=== PATIENT | male | born 1970 | race Caucasian/White ===

== ENCOUNTER 2018-02-11 05:12 | Inpatient (IN) | payer MEDICAID ==
[~2018-02-11] VITALS: Ht 172.7 cm; Wt 60.3 kg
[2018-02-11] VITALS (48 sets, daily range): BP systolic 59–207; BP diastolic 24–113
[~2018-02-11 05:12] MED LIST: AMLO10TA80 PO; ASPI-1159 PO; DIALYVITE PO; HYDR-4134 PO; MINO2.5T19 PO; SEVE800T8 PO
[2018-02-11] MEDS ORDERED: PIPERACILLIN/TAZ 3.375G PREMIX 50 ML IV ONE (07:45)
[2018-02-11] MEDS ORDERED: LEVOFLOXACIN 750MG PREMIX 150 ML IV ONE (07:45)
[2018-02-11 07:47] LABS: HEMATOCRIT. 27.7 % (42.0-52.0); HEMOGLOBIN. 9.2 g/dL (14.0-18.0); MEAN CORPUSCULAR HEMOGLOBIN 31.5 pg (28.0-32.0); MEAN CORPUSCULAR VOLUME 94.7 fL (80.0-94.0); MEAN PLATELET VOLUME 7.7 fl (7.4-10.4); PLATELET 242 x1000/uL (130-400); RED BLOOD CELL COUNT 2.92 mill/uL (4.7-6.1)
[2018-02-11 07:54] LABS: CHLORIDE 87 mEq/L (98-107)
[2018-02-11 07:56] LABS: INR 1.3; PROTHROMBIN TIME 13.9 sec (9.4-11.6)
[2018-02-11 08:21] LABS: PLATELET ESTIMATE NORMAL
[2018-02-11] MEDS ORDERED: SODIUM CHLORIDE 0.9% 1,000 ML IV ONE (09:06)
[2018-02-11] MEDS ORDERED: VANCOMYCIN 1 G PREMIX 200 ML IV SCH (09:15)
[2018-02-11] MEDS ORDERED: LORAZEPAM 2MG/ML CPJ IV PRN (11:15)
[2018-02-11] MEDS ORDERED: ACETAMINOPHEN 650MG SUPP PR PRN (11:15)
[2018-02-11] MEDS ORDERED: ACETAMINOPHEN 650MG/20.3ML UDC GT PRN (11:15)
[2018-02-11] MEDS ORDERED: ONDANSETRON HCL 4MG/2ML VIAL IV PRN (11:15)
[2018-02-11] MEDS ORDERED: HYDROCODONE/ACETAMINOPHEN 10/325MG TABLET PO PRN (11:15)
[2018-02-11] MEDS ORDERED: MAGNESIUM/ALUMINUM HYDROXIDE/SIMETHICONE 30ML UDC PO PRN (11:15)
[2018-02-11] MEDS ORDERED: HYDROCODONE/ACETAMINOPHEN 5/325MG TABLET PO PRN (11:15)
[2018-02-11] MEDS ORDERED: GUAIFENESIN 200MG/10ML SUGAR FREE UDC PO PRN (11:15)
[2018-02-11] MEDS ORDERED: AZITHROMYCIN 500 MG in DEXT 5% WATER 250 ML IV SCH (12:30)
[2018-02-11] MEDS ORDERED: IPRATROPIUM/ALBUTEROL 0.5-3(2.5)MG/3ML NEB HHN PRN (12:30)
[2018-02-11] MEDS ORDERED: CEFTRIAXONE 2 G PREMIX 50 ML IV SCH (12:30)
[2018-02-11 12:42] LABS: BG BILEVEL POS AIRWAY PRESSURE 15/5; BG DEOXYHEMOGLOBIN 6.6 % (0.0-5.0); BG FRACTION INSPIRED OXYGEN 50; BG HCO3 ACT 31.4 mmol/L (22.0-26.0); BG METHEMOGLOBIN 0.2 % (0.0-1.5); BG OXYGEN SATURATION 93.4 % (92.0-98.5); BG OXYHEMOGLOBIN 93.2 % (94.0-97.0); BG PCO2 44.6 mmHg (35.0-45.0); BG PH 7.466 (7.350-7.450); BG PO2 71.9 mmHg (75.0-100.0); BG SAMPLE SITE RIGHT BRACHIAL; BG TOTAL HEMOGLOBIN 9.9 g/dL (12.0-18.0); BG VENT MODE MASK - BIPAP
[2018-02-11] MEDS ORDERED: ALBUTEROL (0.083%) 2.5MG/3ML NEB HHN STA (12:56)
[2018-02-11] MEDS ORDERED: ETOMIDATE 2MG/ML 10ML VIAL IV ONE ×2 (13:45→14:38)
[2018-02-11] MEDS ORDERED: SUCCINYLCHOLINE CHLORIDE 200MG/10ML VIAL IV ONE ×3 (13:45→14:38)
[2018-02-11] MEDS ORDERED: PROPOFOL 10MG/ML 100ML 100 ML IV SCH (13:45)
[2018-02-11] MEDS ORDERED: NITROGLYCERIN 50MG PREMIX 250 ML IV ONE (14:15)
[2018-02-11] MEDS ORDERED: ENALAPRIL 2.5MG/2ML VIAL 2ML IV ONE (14:15)
[2018-02-11] MEDS ORDERED: FUROSEMIDE 20MG/2ML VIAL IVP ONE (14:15)
[2018-02-11] MEDS ORDERED: NORMAL SALINE 0.9% 10 ML SYR ONE (14:38)
[2018-02-11] MEDS ORDERED: MIDAZOLAM HCL 50 MG in DEXTROSE 5% WATER 40 ML IV ONE (14:45)
[2018-02-11] MEDS ORDERED: FENTANYL CITRATE/PF 500 MCG in SODIUM CHLORIDE 0.9% 40 ML IV PRN ×3 (14:45→16:00)
[2018-02-11] MEDS ORDERED: MIDAZOLAM HCL 100 MG in DEXT 5% WATER 80 ML IV PRN (16:00)
[2018-02-11] MEDS ORDERED: PANTOPRAZOLE SODIUM 40 MG/VIAL IV NR (16:00)
[2018-02-11] MEDS ORDERED: NOREPINEPHRINE 16 MG in DEXT 5% WATER 234 ML IV PRN (16:00)
[2018-02-11 16:24] LABS: CREATINE KINASE MB FRACTION 2.2 ng/mL (0.5-3.6)
[2018-02-11 16:51] LABS: BG BASE EXCESS 3.8 mmol/L (-2.0-2.0); BG CARBOXYHEMOGLOBIN 0.5 % (0.5-1.5); BG DEOXYHEMOGLOBIN 21.9 % (0.0-5.0); BG FRACTION INSPIRED OXYGEN 100; BG HCO3 ACT 29.9 mmol/L (22.0-26.0); BG METHEMOGLOBIN 0.5 % (0.0-1.5); BG OXYGEN SATURATION 77.9 % (92.0-98.5); BG OXYHEMOGLOBIN 77.1 % (94.0-97.0); BG PCO2 52.3 mmHg (35.0-45.0); BG PH 7.375 (7.350-7.450); BG PO2 46.3 mmHg (75.0-100.0); BG SAMPLE SITE RIGHT BRACHIAL; BG TIDAL VOLUME(mL) 500 mL; BG VENT MODE VENT - A/C; BG VENT RATE 18 set
[2018-02-11] MEDS: NOREPINEPHRINE 16 MG in DEXT 5% WATER 234 ML IV PRN (17:40)
[2018-02-11 18:17] LABS: BG BASE EXCESS 5.5 mmol/L (-2.0-2.0); BG CARBOXYHEMOGLOBIN 0.2 % (0.5-1.5); BG DEOXYHEMOGLOBIN 12.6 % (0.0-5.0); BG METHEMOGLOBIN 0.2 % (0.0-1.5); BG OXYGEN SATURATION 87.3 % (92.0-98.5); BG PCO2 50.1 mmHg (35.0-45.0); BG PO2 57.3 mmHg (75.0-100.0); BG SAMPLE SITE RIGHT BRACHIAL; BG TIDAL VOLUME(mL) 500 mL; BG TOTAL HEMOGLOBIN 10.7 g/dL (12.0-18.0); BG VENT MODE VENT - A/C; BG VENT RATE 18 set
[2018-02-11] MEDS: METRONIDAZOLE 500 MG PREMIX 100 ML IV SCH (18:22)
[2018-02-11] MEDS ORDERED: VANCOMYCIN 500 MG PREMIX 100 ML IV NR (18:30)
[2018-02-11] MEDS: IPRATROPIUM/ALBUTEROL 0.5-3(2.5)MG/3ML NEB HHN SCH (20:14)
[2018-02-11] MEDS: PIPERACILLIN/TAZ 2.25G PREMIX 50 ML IV SCH (20:36)
[2018-02-11] MEDS: AMLODIPINE 5MG TABLET PO SCH (21:00)
[2018-02-11] MEDS ORDERED: EPOETIN ALFA 10000UNITS/ML VIAL SUBCUT SCH (21:00)
[2018-02-11] MEDS: MIDAZOLAM HCL 100 MG in DEXT 5% WATER 80 ML IV PRN (22:58)
[2018-02-11] MEDS: FENTANYL CITRATE/PF 500 MCG in SODIUM CHLORIDE 0.9% 40 ML IV PRN (22:58)
[2018-02-12] VITALS (104 sets, daily range): BP systolic 66–150; BP diastolic 28–67
[2018-02-12 00:10] LABS: CREATINE KINASE MB FRACTION 3.8 ng/mL (0.5-3.6)
[2018-02-12] MEDS: IPRATROPIUM/ALBUTEROL 0.5-3(2.5)MG/3ML NEB HHN SCH ×6 (03:15→23:46)
[2018-02-12] MEDS: PIPERACILLIN/TAZ 2.25G PREMIX 50 ML IV SCH ×2 (04:49→11:44)
[2018-02-12] MEDS: METRONIDAZOLE 500 MG PREMIX 100 ML IV SCH (05:10)
[2018-02-12 05:30] LABS: HEMATOCRIT. 26.9 % (42.0-52.0); MEAN CORPUSCULAR HEMOGLOBIN 31.8 pg (28.0-32.0); MEAN CORPUSCULAR VOLUME 94.7 fL (80.0-94.0); MEAN PLATELET VOLUME 8.2 fl (7.4-10.4); PLATELET 179 x1000/uL (130-400); RED BLOOD CELL COUNT 2.84 mill/uL (4.7-6.1); RED CELL DISTRIBUTION WIDTH 15.8 % (11.6-14.6)
[2018-02-12 05:44] LABS: CHLORIDE 98 mEq/L (98-107)
[2018-02-12 05:49] LABS: PHOSPHORUS 3.6 mg/dL (2.5-4.9)
[2018-02-12 05:50] LABS: LDL CHOLESTEROL 29 mg/dL (5-100)
[2018-02-12 05:52] LABS: HDL CHOLESTEROL 12 mg/dL (40-59)
[2018-02-12 05:54] LABS: T4 FREE 1.34 ng/dL (0.76-1.46)
[2018-02-12 06:52] LABS: PLATELET ESTIMATE NORMAL
[2018-02-12 07:57] LABS: BG BASE EXCESS 2.4 mmol/L (-2.0-2.0); BG CARBOXYHEMOGLOBIN 0.1 % (0.5-1.5); BG DEOXYHEMOGLOBIN 1.1 % (0.0-5.0); BG FRACTION INSPIRED OXYGEN 100; BG HCO3 ACT 27.3 mmol/L (22.0-26.0); BG METHEMOGLOBIN 0.4 % (0.0-1.5); BG OXYGEN SATURATION 98.9 % (92.0-98.5); BG OXYHEMOGLOBIN 98.4 % (94.0-97.0); BG PCO2 43.5 mmHg (35.0-45.0); BG PH 7.415 (7.350-7.450); BG PO2 181.5 mmHg (75.0-100.0); BG SAMPLE SITE RIGHT RADIAL; BG TIDAL VOLUME(mL) 500 mL; BG TOTAL HEMOGLOBIN 9.6 g/dL (12.0-18.0); BG VENT MODE VENT - A/C; BG VENT RATE 18 set
[2018-02-12] MEDS ORDERED: AMIKACIN SULFATE 750 MG in SODIUM CHLORIDE 0.9% 100 ML IV SCH (09:00)
[2018-02-12] MEDS: PANTOPRAZOLE SODIUM 40 MG/VIAL IV SCH (09:56)
[2018-02-12] MEDS: AMLODIPINE 5MG TABLET PO SCH ×2 (11:00→20:34)
[2018-02-12] MEDS: FENTANYL CITRATE/PF 500 MCG in SODIUM CHLORIDE 0.9% 40 ML IV PRN (11:46)
[2018-02-12] MEDS ORDERED: LIDOCAINE HCL 1% 20ML VIAL (Pyxis) INJ ONE (12:41)
[2018-02-12 22:38] LABS: CLARITY URINE CLOUDY (CLEAR); COLOR URINE YELLOW (YELLOW); KETONES URINE NEGATIVE (NEGATIVE); LEUKOCYTE ESTERASE URINE TRACE (NEGATIVE); NITRITE URINE NEGATIVE (NEGATIVE); OCCULT BLOOD URINE 2+ (NEGATIVE); PH URINE >=9.0 (4.5-8.0); PROTEIN URINE 4+ (NEGATIVE); SPECIFIC GRAVITY URINE 1.012 (1.005-1.030); UROBILINOGEN URINE 0.2 E.U./dL (0.2-1.0)
[2018-02-12 22:50] LABS: *AMPHETAMINES SCREEN URINE NEGATIVE (NEGATIVE); *BARBITURATES SCREEN URINE NEGATIVE (NEGATIVE); *BENZODIAZEPINES SCREEN URINE PRESUMTIVE POSITIVE (NEGATIVE); *COCAINE SCREEN URINE NEGATIVE (NEGATIVE); CANNABINOID URINE SCREEN NEGATIVE (NEGATIVE); METHADONE URINE SCREEN NEGATIVE (NEGATIVE); OPIATES URINE SCREEN NEGATIVE (NEGATIVE); PHENCYCLIDINE URINE SCREEN NEGATIVE (NEGATIVE)
[2018-02-13] VITALS (60 sets, daily range): BP systolic 93–154; BP diastolic 51–75
[2018-02-13] MEDS: NOREPINEPHRINE 16 MG in DEXT 5% WATER 234 ML IV PRN (01:13)
[2018-02-13] MEDS: PIPERACILLIN/TAZ 2.25G PREMIX 50 ML IV SCH ×3 (01:13→18:08)
[2018-02-13] MEDS: IPRATROPIUM/ALBUTEROL 0.5-3(2.5)MG/3ML NEB HHN SCH ×5 (04:15→21:03)
[2018-02-13] MEDS: ACETAMINOPHEN 325MG TABLET PO PRN (04:34)
[2018-02-13 05:32] LABS: HEMATOCRIT. 27.2 % (42.0-52.0); HEMOGLOBIN. 9.2 g/dL (14.0-18.0); MEAN CORPUSCULAR HEMOGLOBIN 31.9 pg (28.0-32.0); MEAN PLATELET VOLUME 8.4 fl (7.4-10.4); PLATELET 213 x1000/uL (130-400); RED BLOOD CELL COUNT 2.89 mill/uL (4.7-6.1); RED CELL DISTRIBUTION WIDTH 15.9 % (11.6-14.6)
[2018-02-13 05:51] LABS: PHOSPHORUS 3.8 mg/dL (2.5-4.9)
[2018-02-13 08:00] LABS: BG CARBOXYHEMOGLOBIN 0.3 % (0.5-1.5); BG DEOXYHEMOGLOBIN 2.4 % (0.0-5.0); BG FRACTION INSPIRED OXYGEN 60; BG HCO3 ACT 25.3 mmol/L (22.0-26.0); BG METHEMOGLOBIN 0.3 % (0.0-1.5); BG OXYGEN SATURATION 97.6 % (92.0-98.5); BG PCO2 38.6 mmHg (35.0-45.0); BG PH 7.434 (7.350-7.450); BG PO2 104.4 mmHg (75.0-100.0); BG SAMPLE SITE RIGHT RADIAL; BG TIDAL VOLUME(mL) 550 mL; BG TOTAL HEMOGLOBIN 9.7 g/dL (12.0-18.0); BG VENT MODE VENT - A/C; BG VENT RATE 18 set
[2018-02-13] MEDS: AMLODIPINE 5MG TABLET PO SCH ×2 (09:00→21:00)
[2018-02-13] MEDS ORDERED: LEVOFLOXACIN 750MG PREMIX 150 ML IV SCH (09:00)
[2018-02-13] MEDS: PANTOPRAZOLE SODIUM 40 MG/VIAL IV SCH (10:06)
[2018-02-13 10:18] LABS: PLATELET ESTIMATE NORMAL
[2018-02-13] MEDS ORDERED: VANCOMYCIN 1 G PREMIX 200 ML IV SCH (12:00)
[2018-02-13] MEDS ORDERED: HYDROMORPHONE HCL/PF 2MG/ML CPJ IV PRN (12:15)
[2018-02-13] MEDS: FENTANYL CITRATE/PF 500 MCG in SODIUM CHLORIDE 0.9% 40 ML IV PRN (14:20)
[2018-02-13] MEDS: EPOETIN ALFA 4000UNITS/ML VIAL SUBCUT SCH (20:23)
[2018-02-13 21:00] LABS: BG BASE EXCESS -0.8 mmol/L (-2.0-2.0); BG CARBOXYHEMOGLOBIN 0.7 % (0.5-1.5); BG DEOXYHEMOGLOBIN 3.3 % (0.0-5.0); BG FRACTION INSPIRED OXYGEN 50; BG HCO3 ACT 22.3 mmol/L (22.0-26.0); BG METHEMOGLOBIN 0.2 % (0.0-1.5); BG OXYGEN SATURATION 96.7 % (92.0-98.5); BG OXYHEMOGLOBIN 95.8 % (94.0-97.0); BG PCO2 30.8 mmHg (35.0-45.0); BG PH 7.478 (7.350-7.450); BG PO2 89.9 mmHg (75.0-100.0); BG SAMPLE SITE RIGHT RADIAL; BG TIDAL VOLUME(mL) 550 mL; BG TOTAL HEMOGLOBIN 8.7 g/dL (12.0-18.0); BG VENT MODE VENT - A/C; BG VENT RATE 14 set
[2018-02-14] VITALS (84 sets, daily range): BP systolic 99–204; BP diastolic 43–88
[2018-02-14] MEDS: IPRATROPIUM/ALBUTEROL 0.5-3(2.5)MG/3ML NEB HHN SCH ×6 (00:53→20:43)
[2018-02-14] MEDS: AMLODIPINE 5MG TABLET PO SCH ×3 (01:08→21:44)
[2018-02-14] MEDS: FENTANYL CITRATE/PF 500 MCG in SODIUM CHLORIDE 0.9% 40 ML IV PRN ×2 (03:44→09:22)
[2018-02-14] MEDS: MIDAZOLAM HCL 100 MG in DEXT 5% WATER 80 ML IV PRN (03:45)
[2018-02-14 05:35] LABS: HEMATOCRIT. 24.3 % (42.0-52.0); HEMOGLOBIN. 8.2 g/dL (14.0-18.0); MEAN CORPUSCULAR HEMOGLOBIN 31.7 pg (28.0-32.0); MEAN CORPUSCULAR VOLUME 93.7 fL (80.0-94.0); PLATELET 185 x1000/uL (130-400); RED BLOOD CELL COUNT 2.59 mill/uL (4.7-6.1); RED CELL DISTRIBUTION WIDTH 15.8 % (11.6-14.6)
[2018-02-14] MEDS: PANTOPRAZOLE SODIUM 40 MG/VIAL IV SCH (08:01)
[2018-02-14 08:21] LABS: BG BASE EXCESS -0.7 mmol/L (-2.0-2.0); BG CARBOXYHEMOGLOBIN 0.3 % (0.5-1.5); BG DEOXYHEMOGLOBIN 2.5 % (0.0-5.0); BG FRACTION INSPIRED OXYGEN 50; BG HCO3 ACT 23.1 mmol/L (22.0-26.0); BG METHEMOGLOBIN 0.3 % (0.0-1.5); BG OXYGEN SATURATION 97.5 % (92.0-98.5); BG OXYHEMOGLOBIN 96.9 % (94.0-97.0); BG PCO2 34.6 mmHg (35.0-45.0); BG PH 7.443 (7.350-7.450); BG PO2 103.3 mmHg (75.0-100.0); BG SAMPLE SITE RIGHT RADIAL; BG TIDAL VOLUME(mL) 550 mL; BG TOTAL HEMOGLOBIN 8.8 g/dL (12.0-18.0); BG VENT MODE VENT - A/C; BG VENT RATE 14 set
[2018-02-14 08:39] LABS: PLATELET ESTIMATE NORMAL
[2018-02-14] MEDS: DOCUSATE SODIUM 100MG CAPSULE PO PRN ×2 (08:49→18:13)
[2018-02-14] MEDS: PIPERACILLIN/TAZ 2.25G PREMIX 50 ML IV SCH ×2 (09:21→18:13)
[2018-02-14 17:34] LABS: BG BASE EXCESS 0.8 mmol/L (-2.0-2.0); BG CARBOXYHEMOGLOBIN 0.5 % (0.5-1.5); BG DEOXYHEMOGLOBIN 4.3 % (0.0-5.0); BG METHEMOGLOBIN 0.2 % (0.0-1.5); BG OXYGEN SATURATION 95.7 % (92.0-98.5); BG PCO2 43.7 mmHg (35.0-45.0); BG PH 7.392 (7.350-7.450); BG PO2 84.9 mmHg (75.0-100.0); BG SAMPLE SITE RIGHT BRACHIAL; BG TIDAL VOLUME(mL) 550 mL; BG VENT MODE VENT - SIMV; BG VENT RATE 10 set
[2018-02-15] VITALS (51 sets, daily range): BP systolic 97–146; BP diastolic 52–104
[2018-02-15] MEDS: IPRATROPIUM/ALBUTEROL 0.5-3(2.5)MG/3ML NEB HHN SCH ×6 (00:19→21:08)
[2018-02-15] MEDS: PIPERACILLIN/TAZ 2.25G PREMIX 50 ML IV SCH ×2 (01:24→10:04)
[2018-02-15] MEDS: MIDAZOLAM HCL 100 MG in DEXT 5% WATER 80 ML IV PRN ×2 (01:54→19:57)
[2018-02-15] MEDS: FENTANYL CITRATE/PF 500 MCG in SODIUM CHLORIDE 0.9% 40 ML IV PRN ×3 (02:26→19:56)
[2018-02-15 05:46] LABS: HEMATOCRIT. 24.9 % (42.0-52.0); HEMOGLOBIN. 8.4 g/dL (14.0-18.0); MEAN CORPUSCULAR HEMOGLOBIN 31.4 pg (28.0-32.0); MEAN CORPUSCULAR VOLUME 93.4 fL (80.0-94.0); MEAN PLATELET VOLUME 7.7 fl (7.4-10.4); PLATELET 168 x1000/uL (130-400); RED BLOOD CELL COUNT 2.66 mill/uL (4.7-6.1); RED CELL DISTRIBUTION WIDTH 15.9 % (11.6-14.6)
[2018-02-15] MEDS: PANTOPRAZOLE SODIUM 40 MG/VIAL IV SCH (08:09)
[2018-02-15] MEDS: LEVOFLOXACIN 500MG PREMIX 100 ML IV SCH (08:09)
[2018-02-15] MEDS: AMLODIPINE 5MG TABLET PO SCH ×2 (08:09→20:48)
[2018-02-15] MEDS: DOCUSATE SODIUM SUGAR FREE 100MG/10ML UDC NG SCH ×2 (08:18→17:01)
[2018-02-15 09:49] LABS: BG CARBOXYHEMOGLOBIN 0.1 % (0.5-1.5); BG DEOXYHEMOGLOBIN 3.4 % (0.0-5.0); BG FRACTION INSPIRED OXYGEN 50; BG HCO3 ACT 27.5 mmol/L (22.0-26.0); BG METHEMOGLOBIN 0.6 % (0.0-1.5); BG OXYGEN SATURATION 96.6 % (92.0-98.5); BG OXYHEMOGLOBIN 95.9 % (94.0-97.0); BG PCO2 47.3 mmHg (35.0-45.0); BG PH 7.382 (7.350-7.450); BG PO2 99.9 mmHg (75.0-100.0); BG PRESSURE SUPPORT 12; BG SAMPLE SITE RIGHT RADIAL; BG TIDAL VOLUME(mL) 550 mL; BG TOTAL HEMOGLOBIN 9.4 g/dL (12.0-18.0); BG VENT MODE VENT - SIMV; BG VENT RATE 10 set
[2018-02-15] MEDS: ACETAMINOPHEN 325MG TABLET PO PRN (11:08)
[2018-02-15 11:32] LABS: PLATELET ESTIMATE NORMAL
[2018-02-15] MEDS: ACETYLCYSTEINE 100MG/ML 10% VIAL 4ML INH SCH (12:40)
[2018-02-15] MEDS ORDERED: DIATR MEGLU/DIATRIZOATE SOLN 30ML PO NR (13:00)
[2018-02-15] MEDS ORDERED: LACTULOSE 20G/30ML UDC PO NR (16:45)
[2018-02-15 19:33] LABS: AMMONIA 32 uMol/L (<32)
[2018-02-15] MEDS ORDERED: FENTANYL CITRATE IV PRN (19:45)
[2018-02-15] MEDS ORDERED: SODIUM CHLORIDE 0.9% IV PRN (19:45)
[2018-02-15] MEDS ORDERED: NA PHOS,M-B/NA PHOS,DI-BA ENEMA 118ML PR PRN (21:00)
[2018-02-16] VITALS (44 sets, daily range): BP systolic 98–151; BP diastolic 38–100
[2018-02-16] MEDS: ACETYLCYSTEINE 100MG/ML 10% VIAL 4ML INH SCH ×3 (00:21→16:37)
[2018-02-16] MEDS: IPRATROPIUM/ALBUTEROL 0.5-3(2.5)MG/3ML NEB HHN SCH ×6 (00:21→20:14)
[2018-02-16] MEDS: FENTANYL 500 MCG in SODIUM CHLORIDE 0.9% 50 ML IV PRN ×4 (00:47→20:16)
[2018-02-16 08:02] LABS: BG BASE EXCESS 0.5 mmol/L (-2.0-2.0); BG CARBOXYHEMOGLOBIN 0.8 % (0.5-1.5); BG DEOXYHEMOGLOBIN 10.4 % (0.0-5.0); BG HCO3 ACT 27.1 mmol/L (22.0-26.0); BG METHEMOGLOBIN 0.1 % (0.0-1.5); BG OXYGEN SATURATION 89.5 % (92.0-98.5); BG OXYHEMOGLOBIN 88.7 % (94.0-97.0); BG PCO2 54.2 mmHg (35.0-45.0); BG PH 7.317 (7.350-7.450); BG PO2 63.4 mmHg (75.0-100.0); BG SAMPLE SITE RIGHT BRACHIAL; BG TIDAL VOLUME(mL) 550 mL; BG TOTAL HEMOGLOBIN 8.9 g/dL (12.0-18.0); BG VENT MODE VENT - SIMV; BG VENT RATE 10 set
[2018-02-16 08:57] LABS: HEMATOCRIT. 23.9 % (42.0-52.0); MEAN CORPUSCULAR HEMOGLOBIN 31.5 pg (28.0-32.0); MEAN CORPUSCULAR VOLUME 93.8 fL (80.0-94.0); MEAN PLATELET VOLUME 7.7 fl (7.4-10.4); PLATELET 157 x1000/uL (130-400); RED BLOOD CELL COUNT 2.54 mill/uL (4.7-6.1); RED CELL DISTRIBUTION WIDTH 15.7 % (11.6-14.6)
[2018-02-16] MEDS: AMLODIPINE 5MG TABLET PO SCH ×2 (09:00→21:02)
[2018-02-16] MEDS: DOCUSATE SODIUM SUGAR FREE 100MG/10ML UDC NG SCH ×2 (09:00→15:08)
[2018-02-16 09:07] LABS: PHOSPHORUS 4.8 mg/dL (2.5-4.9)
[2018-02-16] MEDS: MIDAZOLAM HCL 100 MG in DEXT 5% WATER 80 ML IV PRN (09:30)
[2018-02-16 09:44] LABS: FOLIC ACID (FOLATE) SERUM >20 ng/mL ng/mL (>5.38)
[2018-02-16 10:13] LABS: VITAMIN B12 SERUM > 2000.0 pg/mL (211-911)
[2018-02-16] MEDS: PANTOPRAZOLE SODIUM 40 MG/VIAL IV SCH ×2 (10:39→21:02)
[2018-02-16 10:41] LABS: INR 1.2; PARTIAL THROMBOPLASTIN TIME 29.5 sec (23.4-31.0); PROTHROMBIN TIME 12.9 sec (9.4-11.6)
[2018-02-16 11:08] LABS: FERRITIN 1798 ng/mL (22-322)
[2018-02-16 13:03] LABS: PLATELET ESTIMATE NORMAL
[2018-02-16 16:59] LABS: HEMATOCRIT 25.1 % (42.0-52.0); HEMOGLOBIN 8.4 g/dL (14.0-18.0)
[2018-02-16] MEDS: EPOETIN ALFA 4000UNITS/ML VIAL SUBCUT SCH (21:03)
[2018-02-17] VITALS (47 sets, daily range): BP systolic 113–177; BP diastolic 36–83
[2018-02-17] MEDS: MIDAZOLAM HCL 100 MG in DEXT 5% WATER 80 ML IV PRN ×3 (00:01→19:17)
[2018-02-17] MEDS: ACETYLCYSTEINE 100MG/ML 10% VIAL 4ML INH SCH ×5 (00:30→23:55)
[2018-02-17] MEDS: IPRATROPIUM/ALBUTEROL 0.5-3(2.5)MG/3ML NEB HHN SCH ×7 (00:31→23:54)
[2018-02-17] MEDS: FENTANYL 500 MCG in SODIUM CHLORIDE 0.9% 50 ML IV PRN ×6 (05:06→23:56)
[2018-02-17 06:17] LABS: HEMATOCRIT. 24.7 % (42.0-52.0); HEMOGLOBIN. 8.4 g/dL (14.0-18.0); MEAN CORPUSCULAR HEMOGLOBIN 31.3 pg (28.0-32.0); MEAN CORPUSCULAR VOLUME 92.3 fL (80.0-94.0); MEAN PLATELET VOLUME 8.1 fl (7.4-10.4); PLATELET 223 x1000/uL (130-400); RED BLOOD CELL COUNT 2.67 mill/uL (4.7-6.1); RED CELL DISTRIBUTION WIDTH 15.5 % (11.6-14.6)
[2018-02-17 07:56] LABS: BG BASE EXCESS -0.3 mmol/L (-2.0-2.0); BG CARBOXYHEMOGLOBIN 0.3 % (0.5-1.5); BG DEOXYHEMOGLOBIN 1.4 % (0.0-5.0); BG FRACTION INSPIRED OXYGEN 50; BG HCO3 ACT 25.8 mmol/L (22.0-26.0); BG METHEMOGLOBIN 0.2 % (0.0-1.5); BG OXYGEN SATURATION 98.6 % (92.0-98.5); BG OXYHEMOGLOBIN 98.1 % (94.0-97.0); BG PCO2 49.8 mmHg (35.0-45.0); BG PH 7.333 (7.350-7.450); BG PO2 164.3 mmHg (75.0-100.0); BG SAMPLE SITE RIGHT BRACHIAL; BG TIDAL VOLUME(mL) 550 mL; BG VENT MODE VENT - A/C; BG VENT RATE 12 set
[2018-02-17 08:47] LABS: PLATELET ESTIMATE NORMAL
[2018-02-17] MEDS: AMLODIPINE 5MG TABLET PO SCH ×2 (09:28→20:32)
[2018-02-17] MEDS: PANTOPRAZOLE SODIUM 40 MG/VIAL IV SCH ×2 (09:28→20:32)
[2018-02-17] MEDS: DOCUSATE SODIUM SUGAR FREE 100MG/10ML UDC NG SCH ×2 (09:28→18:29)
[2018-02-17] MEDS: LEVOFLOXACIN 500MG PREMIX 100 ML IV SCH (09:30)
[2018-02-17] MEDS: NEOMY SULF/BACITRAC ZN/POLY OINT 28GM TOP SCH (20:35)
[2018-02-18] VITALS (47 sets, daily range): BP systolic 114–171; BP diastolic 37–65
[2018-02-18] MEDS: MIDAZOLAM HCL 100 MG in DEXT 5% WATER 80 ML IV PRN ×2 (03:45→14:16)
[2018-02-18] MEDS: IPRATROPIUM/ALBUTEROL 0.5-3(2.5)MG/3ML NEB HHN SCH ×5 (04:23→20:06)
[2018-02-18] MEDS: ACETYLCYSTEINE 100MG/ML 10% VIAL 4ML INH SCH ×4 (04:33→16:00)
[2018-02-18] MEDS: FENTANYL 500 MCG in SODIUM CHLORIDE 0.9% 50 ML IV PRN ×4 (05:20→21:53)
[2018-02-18 07:21] LABS: BASOPHILS % 0.8 % (0.0-2.0); EOSINOPHILS % 6.1 % (0.0-5.0); HEMATOCRIT. 24.3 % (42.0-52.0); HEMOGLOBIN. 8.3 g/dL (14.0-18.0); LYMPHOCYTES % 9.6 % (20.0-50.0); MEAN CORPUSCULAR HEMOGLOBIN 31.6 pg (28.0-32.0); MEAN PLATELET VOLUME 7.9 fl (7.4-10.4); MONOCYTES % 7.2 % (2.0-8.0); NEUTROPHILS % 76.3 % (40.0-76.0); PLATELET 257 x1000/uL (130-400); RED BLOOD CELL COUNT 2.62 mill/uL (4.7-6.1); RED CELL DISTRIBUTION WIDTH 15.7 % (11.6-14.6)
[2018-02-18 07:47] LABS: PHOSPHORUS 5.7 mg/dL (2.5-4.9)
[2018-02-18 08:06] LABS: BG BASE EXCESS 1.4 mmol/L (-2.0-2.0); BG CARBOXYHEMOGLOBIN 0.4 % (0.5-1.5); BG DEOXYHEMOGLOBIN 1.6 % (0.0-5.0); BG FRACTION INSPIRED OXYGEN 40; BG HCO3 ACT 26.5 mmol/L (22.0-26.0); BG METHEMOGLOBIN 0.2 % (0.0-1.5); BG OXYGEN SATURATION 98.4 % (92.0-98.5); BG OXYHEMOGLOBIN 97.8 % (94.0-97.0); BG PCO2 44.3 mmHg (35.0-45.0); BG PH 7.394 (7.350-7.450); BG PO2 133.5 mmHg (75.0-100.0); BG SAMPLE SITE RIGHT BRACHIAL; BG TIDAL VOLUME(mL) 550 mL; BG TOTAL HEMOGLOBIN 8.6 g/dL (12.0-18.0); BG VENT MODE VENT - A/C; BG VENT RATE 12 set
[2018-02-18] MEDS: AMLODIPINE 5MG TABLET PO SCH ×2 (09:00→20:22)
[2018-02-18] MEDS: DOCUSATE SODIUM SUGAR FREE 100MG/10ML UDC NG SCH ×2 (09:36→17:24)
[2018-02-18] MEDS: NEOMY SULF/BACITRAC ZN/POLY OINT 28GM TOP SCH ×2 (09:37→20:31)
[2018-02-18] MEDS: PANTOPRAZOLE SODIUM 40 MG/VIAL IV SCH ×2 (09:37→20:21)
[2018-02-18] MEDS: EPOETIN ALFA 4000UNITS/ML VIAL SUBCUT SCH (20:22)
[2018-02-19] VITALS (38 sets, daily range): BP systolic 113–176; BP diastolic 38–106
[2018-02-19] MEDS: IPRATROPIUM/ALBUTEROL 0.5-3(2.5)MG/3ML NEB HHN SCH ×6 (00:16→21:16)
[2018-02-19] MEDS: ACETYLCYSTEINE 100MG/ML 10% VIAL 4ML INH SCH ×6 (00:17→21:16)
[2018-02-19] MEDS: FENTANYL 500 MCG in SODIUM CHLORIDE 0.9% 50 ML IV PRN ×2 (04:20→09:21)
[2018-02-19] MEDS: MIDAZOLAM HCL 100 MG in DEXT 5% WATER 80 ML IV PRN (05:54)
[2018-02-19 06:41] LABS: BASOPHILS % 1.5 % (0.0-2.0); EOSINOPHILS % 5.6 % (0.0-5.0); HEMATOCRIT. 27.2 % (42.0-52.0); HEMOGLOBIN. 9.2 g/dL (14.0-18.0); LYMPHOCYTES % 8.8 % (20.0-50.0); MEAN CORPUSCULAR HEMOGLOBIN 31.2 pg (28.0-32.0); MEAN CORPUSCULAR VOLUME 92.4 fL (80.0-94.0); MEAN PLATELET VOLUME 7.6 fl (7.4-10.4); MONOCYTES % 7.4 % (2.0-8.0); NEUTROPHILS % 76.7 % (40.0-76.0); PLATELET 301 x1000/uL (130-400); RED BLOOD CELL COUNT 2.95 mill/uL (4.7-6.1); RED CELL DISTRIBUTION WIDTH 15.5 % (11.6-14.6)
[2018-02-19] MEDS: NEOMY SULF/BACITRAC ZN/POLY OINT 28GM TOP SCH ×2 (09:00→21:11)
[2018-02-19] MEDS: AMLODIPINE 5MG TABLET PO SCH ×2 (09:21→21:11)
[2018-02-19] MEDS: DOCUSATE SODIUM SUGAR FREE 100MG/10ML UDC NG SCH ×2 (09:21→17:23)
[2018-02-19] MEDS: PANTOPRAZOLE SODIUM 40 MG/VIAL IV SCH ×2 (09:21→21:11)
[2018-02-19] MEDS: LOSARTAN POTASSIUM 50 MG TABLET PO SCH (11:15)
[2018-02-19 11:28] LABS: BG BASE EXCESS 0.5 mmol/L (-2.0-2.0); BG CARBOXYHEMOGLOBIN 0.3 % (0.5-1.5); BG FRACTION INSPIRED OXYGEN 40; BG HCO3 ACT 25.1 mmol/L (22.0-26.0); BG METHEMOGLOBIN 0.1 % (0.0-1.5); BG OXYHEMOGLOBIN 97.6 % (94.0-97.0); BG PCO2 40.3 mmHg (35.0-45.0); BG PH 7.412 (7.350-7.450); BG PO2 120.8 mmHg (75.0-100.0); BG SAMPLE SITE RIGHT RADIAL; BG TIDAL VOLUME(mL) 550 mL; BG TOTAL HEMOGLOBIN 9.3 g/dL (12.0-18.0); BG VENT MODE VENT - A/C; BG VENT RATE 12 set
[2018-02-19] MEDS ORDERED: MORPHINE SULFATE 4 MG/ML CPJ (NOT FOR IM USE) IV PRN (12:30)
[2018-02-19] MEDS: PROPOFOL 10MG/ML 100ML 100 ML IV PRN ×2 (12:31→22:42)
[2018-02-19] MEDS: FENTANYL CITRATE/PF 1,000 MCG in SODIUM CHLORIDE 0.9% 80 ML IV PRN ×2 (13:59→18:14)
[2018-02-20] VITALS (44 sets, daily range): BP systolic 118–176; BP diastolic 56–112
[2018-02-20] MEDS: ACETYLCYSTEINE 100MG/ML 10% VIAL 4ML INH SCH ×6 (00:38→20:11)
[2018-02-20] MEDS: IPRATROPIUM/ALBUTEROL 0.5-3(2.5)MG/3ML NEB HHN SCH ×6 (00:38→20:11)
[2018-02-20 05:22] LABS: BASOPHILS % 1.4 % (0.0-2.0); HEMATOCRIT. 26.2 % (42.0-52.0); LYMPHOCYTES % 7.4 % (20.0-50.0); MEAN CORPUSCULAR HEMOGLOBIN 31.5 pg (28.0-32.0); MEAN PLATELET VOLUME 7.4 fl (7.4-10.4); MONOCYTES % 6.4 % (2.0-8.0); NEUTROPHILS % 79.8 % (40.0-76.0); PLATELET 328 x1000/uL (130-400); RED BLOOD CELL COUNT 2.85 mill/uL (4.7-6.1); RED CELL DISTRIBUTION WIDTH 15.5 % (11.6-14.6)
[2018-02-20] MEDS: PROPOFOL 10MG/ML 100ML 100 ML IV PRN (06:28)
[2018-02-20 07:21] LABS: PHOSPHORUS 6.4 mg/dL (2.5-4.9)
[2018-02-20] MEDS: NEOMY SULF/BACITRAC ZN/POLY OINT 28GM TOP SCH ×2 (09:00→21:22)
[2018-02-20 09:11] LABS: BG BASE EXCESS -2.2 mmol/L (-2.0-2.0); BG CARBOXYHEMOGLOBIN 0.3 % (0.5-1.5); BG DEOXYHEMOGLOBIN 1.6 % (0.0-5.0); BG FRACTION INSPIRED OXYGEN 40; BG HCO3 ACT 22.9 mmol/L (22.0-26.0); BG METHEMOGLOBIN 0.3 % (0.0-1.5); BG OXYGEN SATURATION 98.4 % (92.0-98.5); BG OXYHEMOGLOBIN 97.8 % (94.0-97.0); BG PCO2 40.1 mmHg (35.0-45.0); BG PH 7.374 (7.350-7.450); BG PO2 149.1 mmHg (75.0-100.0); BG PRESSURE SUPPORT 12; BG SAMPLE SITE RIGHT RADIAL; BG TIDAL VOLUME(mL) 550 mL; BG TOTAL HEMOGLOBIN 9.4 g/dL (12.0-18.0); BG VENT MODE VENT - SIMV; BG VENT RATE 8 set
[2018-02-20] MEDS ORDERED: PROPOFOL 10MG/ML 100ML 100 ML IV PRN (14:00)
[2018-02-20] MEDS: DOCUSATE SODIUM SUGAR FREE 100MG/10ML UDC NG SCH ×2 (14:49→18:07)
[2018-02-20] MEDS: LOSARTAN POTASSIUM 50 MG TABLET PO SCH (14:51)
[2018-02-20] MEDS: AMLODIPINE 5MG TABLET PO SCH ×2 (14:51→21:23)
[2018-02-20] MEDS: PANTOPRAZOLE SODIUM 40 MG/VIAL IV SCH ×2 (14:51→21:22)
[2018-02-20 15:11] LABS: BG BASE EXCESS 1.5 mmol/L (-2.0-2.0); BG CARBOXYHEMOGLOBIN 0.1 % (0.5-1.5); BG DEOXYHEMOGLOBIN 2.1 % (0.0-5.0); BG FRACTION INSPIRED OXYGEN 40; BG METHEMOGLOBIN 0.4 % (0.0-1.5); BG OXYGEN SATURATION 97.9 % (92.0-98.5); BG OXYHEMOGLOBIN 97.4 % (94.0-97.0); BG PCO2 46.4 mmHg (35.0-45.0); BG PH 7.382 (7.350-7.450); BG PO2 116.3 mmHg (75.0-100.0); BG PRESSURE SUPPORT 8; BG SAMPLE SITE RIGHT RADIAL; BG TOTAL HEMOGLOBIN 10.9 g/dL (12.0-18.0); BG VENT MODE VENT - CPAP
[2018-02-20] MEDS: HYDRALAZINE 20MG/ML VIAL IV PRN (18:05)
[2018-02-20 21:22] LABS: BG BASE EXCESS 0.3 mmol/L (-2.0-2.0); BG CARBOXYHEMOGLOBIN 0.9 % (0.5-1.5); BG DEOXYHEMOGLOBIN 4.2 % (0.0-5.0); BG FRACTION INSPIRED OXYGEN 40; BG HCO3 ACT 26.2 mmol/L (22.0-26.0); BG METHEMOGLOBIN 0.3 % (0.0-1.5); BG OXYGEN SATURATION 95.7 % (92.0-98.5); BG OXYHEMOGLOBIN 94.6 % (94.0-97.0); BG PCO2 46.9 mmHg (35.0-45.0); BG PH 7.365 (7.350-7.450); BG SAMPLE SITE RIGHT RADIAL; BG VENT MODE MASK - AEROSOL
[2018-02-20] MEDS: EPOETIN ALFA 10000UNITS/ML VIAL SUBCUT SCH (21:23)
[2018-02-21] VITALS (48 sets, daily range): BP systolic 118–172; BP diastolic 57–97
[2018-02-21] MEDS: IPRATROPIUM/ALBUTEROL 0.5-3(2.5)MG/3ML NEB HHN SCH ×6 (00:10→21:21)
[2018-02-21] MEDS: ACETYLCYSTEINE 100MG/ML 10% VIAL 4ML INH SCH ×4 (00:10→11:18)
[2018-02-21 05:26] LABS: BASOPHILS % 1.3 % (0.0-2.0); EOSINOPHILS % 3.3 % (0.0-5.0); HEMATOCRIT. 30.1 % (42.0-52.0); HEMOGLOBIN. 10.1 g/dL (14.0-18.0); LYMPHOCYTES % 8.6 % (20.0-50.0); MEAN CORPUSCULAR HEMOGLOBIN 31.1 pg (28.0-32.0); MEAN CORPUSCULAR VOLUME 92.3 fL (80.0-94.0); MEAN PLATELET VOLUME 7.2 fl (7.4-10.4); MONOCYTES % 6.1 % (2.0-8.0); NEUTROPHILS % 80.7 % (40.0-76.0); PLATELET 352 x1000/uL (130-400); RED BLOOD CELL COUNT 3.25 mill/uL (4.7-6.1); RED CELL DISTRIBUTION WIDTH 15.9 % (11.6-14.6)
[2018-02-21 07:12] LABS: BG BASE EXCESS 1.4 mmol/L (-2.0-2.0); BG CARBOXYHEMOGLOBIN 0.6 % (0.5-1.5); BG DEOXYHEMOGLOBIN 6.1 % (0.0-5.0); BG FRACTION INSPIRED OXYGEN 28; BG HCO3 ACT 26.9 mmol/L (22.0-26.0); BG METHEMOGLOBIN 0.1 % (0.0-1.5); BG OXYGEN SATURATION 93.9 % (92.0-98.5); BG OXYHEMOGLOBIN 93.2 % (94.0-97.0); BG PCO2 46.4 mmHg (35.0-45.0); BG PH 7.381 (7.350-7.450); BG PO2 75.3 mmHg (75.0-100.0); BG SAMPLE SITE RIGHT RADIAL; BG TOTAL HEMOGLOBIN 11.1 g/dL (12.0-18.0); BG VENT MODE NASAL CANNULA
[2018-02-21] MEDS: AMLODIPINE 5MG TABLET PO SCH ×2 (10:12→21:30)
[2018-02-21] MEDS: DOCUSATE SODIUM SUGAR FREE 100MG/10ML UDC NG SCH ×2 (10:12→19:02)
[2018-02-21] MEDS: LOSARTAN POTASSIUM 50 MG TABLET PO SCH (10:12)
[2018-02-21] MEDS: PANTOPRAZOLE SODIUM 40 MG/VIAL IV SCH ×2 (10:13→21:29)
[2018-02-21] MEDS: NEOMY SULF/BACITRAC ZN/POLY OINT 28GM TOP SCH ×2 (11:59→21:30)
[2018-02-22] VITALS (36 sets, daily range): BP systolic 82–163; BP diastolic 31–101
[2018-02-22] MEDS: IPRATROPIUM/ALBUTEROL 0.5-3(2.5)MG/3ML NEB HHN SCH ×7 (00:52→23:54)
[2018-02-22 05:01] LABS: BASOPHILS % 2.5 % (0.0-2.0); EOSINOPHILS % 3.7 % (0.0-5.0); HEMATOCRIT. 28.8 % (42.0-52.0); HEMOGLOBIN. 9.8 g/dL (14.0-18.0); LYMPHOCYTES % 9.9 % (20.0-50.0); MEAN CORPUSCULAR HEMOGLOBIN 31.7 pg (28.0-32.0); MEAN CORPUSCULAR VOLUME 92.9 fL (80.0-94.0); MEAN PLATELET VOLUME 7.2 fl (7.4-10.4); MONOCYTES % 6.3 % (2.0-8.0); NEUTROPHILS % 77.6 % (40.0-76.0); PLATELET 398 x1000/uL (130-400); RED BLOOD CELL COUNT 3.11 mill/uL (4.7-6.1); RED CELL DISTRIBUTION WIDTH 16.1 % (11.6-14.6)
[2018-02-22] MEDS: LOSARTAN POTASSIUM 50 MG TABLET PO SCH (09:10)
[2018-02-22] MEDS: DOCUSATE SODIUM SUGAR FREE 100MG/10ML UDC NG SCH ×2 (09:10→17:25)
[2018-02-22] MEDS: AMLODIPINE 5MG TABLET PO SCH ×2 (09:10→21:37)
[2018-02-22] MEDS: PANTOPRAZOLE SODIUM 40 MG/VIAL IV SCH ×2 (09:10→21:36)
[2018-02-22] MEDS: NEOMY SULF/BACITRAC ZN/POLY OINT 28GM TOP SCH ×2 (09:14→21:37)
[2018-02-22 10:32] LABS: BG BASE EXCESS -0.7 mmol/L (-2.0-2.0); BG CARBOXYHEMOGLOBIN 0.4 % (0.5-1.5); BG DEOXYHEMOGLOBIN 4.1 % (0.0-5.0); BG FRACTION INSPIRED OXYGEN 28; BG METHEMOGLOBIN 0.3 % (0.0-1.5); BG OXYGEN SATURATION 95.9 % (92.0-98.5); BG OXYHEMOGLOBIN 95.2 % (94.0-97.0); BG PCO2 45.3 mmHg (35.0-45.0); BG PH 7.359 (7.350-7.450); BG PO2 89.6 mmHg (75.0-100.0); BG SAMPLE SITE RIGHT RADIAL; BG TOTAL HEMOGLOBIN 10.4 g/dL (12.0-18.0); BG VENT MODE NASAL CANNULA
[2018-02-22 12:15] LABS: AMMONIA 32 uMol/L (<32)
[2018-02-23] VITALS (29 sets, daily range): BP systolic 117–175; BP diastolic 28–122
[2018-02-23] MEDS: IPRATROPIUM/ALBUTEROL 0.5-3(2.5)MG/3ML NEB HHN SCH ×5 (04:31→20:11)
[2018-02-23 04:47] LABS: BASOPHILS % 2.5 % (0.0-2.0); EOSINOPHILS % 4.8 % (0.0-5.0); HEMATOCRIT. 26.1 % (42.0-52.0); HEMOGLOBIN. 9.1 g/dL (14.0-18.0); LYMPHOCYTES % 12.4 % (20.0-50.0); MEAN CORPUSCULAR HEMOGLOBIN 32.5 pg (28.0-32.0); MEAN CORPUSCULAR VOLUME 92.8 fL (80.0-94.0); MONOCYTES % 7.6 % (2.0-8.0); NEUTROPHILS % 72.7 % (40.0-76.0); PLATELET 380 x1000/uL (130-400); RED BLOOD CELL COUNT 2.81 mill/uL (4.7-6.1); RED CELL DISTRIBUTION WIDTH 16.3 % (11.6-14.6)
[2018-02-23 05:47] LABS: PHOSPHORUS 7.6 mg/dL (2.5-4.9)
[2018-02-23] MEDS: LOSARTAN POTASSIUM 50 MG TABLET PO SCH (09:25)
[2018-02-23] MEDS: DOCUSATE SODIUM SUGAR FREE 100MG/10ML UDC NG SCH ×2 (09:25→17:00)
[2018-02-23] MEDS: PANTOPRAZOLE SODIUM 40 MG/VIAL IV SCH ×2 (09:25→21:22)
[2018-02-23] MEDS: NEOMY SULF/BACITRAC ZN/POLY OINT 28GM TOP SCH ×2 (09:26→21:00)
[2018-02-23] MEDS: AMLODIPINE 5MG TABLET PO SCH ×2 (09:26→21:22)
[2018-02-23] MEDS: EPOETIN ALFA 10000UNITS/ML VIAL SUBCUT SCH (21:22)
[2018-02-24] VITALS (39 sets, daily range): BP systolic 124–185; BP diastolic 37–86
[2018-02-24] MEDS: IPRATROPIUM/ALBUTEROL 0.5-3(2.5)MG/3ML NEB HHN SCH ×5 (00:38→20:00)
[2018-02-24 06:44] LABS: BASOPHILS % 2.6 % (0.0-2.0); EOSINOPHILS % 4.5 % (0.0-5.0); HEMATOCRIT. 26.4 % (42.0-52.0); LYMPHOCYTES % 11.7 % (20.0-50.0); MEAN CORPUSCULAR HEMOGLOBIN 31.7 pg (28.0-32.0); MEAN CORPUSCULAR VOLUME 92.9 fL (80.0-94.0); MEAN PLATELET VOLUME 7.2 fl (7.4-10.4); MONOCYTES % 7.5 % (2.0-8.0); NEUTROPHILS % 73.7 % (40.0-76.0); PLATELET 381 x1000/uL (130-400); RED BLOOD CELL COUNT 2.84 mill/uL (4.7-6.1); RED CELL DISTRIBUTION WIDTH 16.4 % (11.6-14.6)
[2018-02-24] MEDS: PANTOPRAZOLE SODIUM 40 MG/VIAL IV SCH ×2 (08:31→21:44)
[2018-02-24] MEDS ORDERED: IOHEXOL-300 100 ML BOTTLE ONE ×2 (08:45→09:54)
[2018-02-24] MEDS ORDERED: SODIUM BICARBONATE 4% (2.4MEQ) 5ML VIAL IV ONE (08:45)
[2018-02-24] MEDS ORDERED: LIDOCAINE HCL 1% 20ML VIAL (Pyxis) INJ ONE (08:45)
[2018-02-24] MEDS: DOCUSATE SODIUM SUGAR FREE 100MG/10ML UDC NG SCH ×2 (09:00→11:11)
[2018-02-24] MEDS: LOSARTAN POTASSIUM 50 MG TABLET PO SCH ×2 (09:00→11:11)
[2018-02-24] MEDS: NEOMY SULF/BACITRAC ZN/POLY OINT 28GM TOP SCH ×2 (09:00→23:25)
[2018-02-24] MEDS: AMLODIPINE 5MG TABLET PO SCH ×2 (09:00→11:11)
[2018-02-24] MEDS ORDERED: FENTANYL CITRATE/PF 50MCG/ML 2ML VIAL IV ONE (09:05)
[2018-02-24] MEDS ORDERED: CEFAZOLIN 1000MG PREMIX 50 ML IV ONE ×2 (09:10→09:30)
[2018-02-24] MEDS ORDERED: HEPARIN 1000 UNITS/ML 10ML ONE (09:31)
[2018-02-24] MEDS ORDERED: FENTANYL CITRATE/PF 50MCG/ML 2ML VIAL ONE (09:31)
[2018-02-24] MEDS: HYDRALAZINE 20MG/ML VIAL IV PRN (21:42)
[2018-02-24] MEDS: ACETAMINOPHEN 325MG TABLET PO PRN (21:43)
[2018-02-25] VITALS (10 sets, daily range): BP systolic 142–181; BP diastolic 60–86
[2018-02-25] MEDS: IPRATROPIUM/ALBUTEROL 0.5-3(2.5)MG/3ML NEB HHN SCH ×6 (00:38→19:59)
[2018-02-25] MEDS: ACETAMINOPHEN 325MG TABLET PO PRN (06:24)
[2018-02-25] MEDS: NEOMY SULF/BACITRAC ZN/POLY OINT 28GM TOP SCH ×2 (08:13→20:51)
[2018-02-25] MEDS: PANTOPRAZOLE SODIUM 40 MG/VIAL IV SCH ×2 (08:13→20:50)
[2018-02-25] MEDS: AMLODIPINE 5MG TABLET PO SCH ×2 (08:13→20:50)
[2018-02-25] MEDS: DOCUSATE SODIUM SUGAR FREE 100MG/10ML UDC NG SCH ×2 (08:13→17:26)
[2018-02-25] MEDS: HYDROCODONE/ACETAMINOPHEN 5/325MG TABLET PO PRN (13:18)
[2018-02-25] MEDS: HYDRALAZINE 20MG/ML VIAL IV PRN (13:34)
[2018-02-25] MEDS ORDERED: EPOETIN ALFA 10000UNITS/ML VIAL SUBCUT SCH (21:00)
[2018-02-26] VITALS (21 sets, daily range): BP systolic 118–179; BP diastolic 55–96
[2018-02-26] MEDS: IPRATROPIUM/ALBUTEROL 0.5-3(2.5)MG/3ML NEB HHN SCH ×6 (00:05→21:04)
[2018-02-26 06:14] LABS: BASOPHILS % 2.9 % (0.0-2.0); EOSINOPHILS % 5.8 % (0.0-5.0); HEMATOCRIT. 27.2 % (42.0-52.0); HEMOGLOBIN. 9.4 g/dL (14.0-18.0); MEAN CORPUSCULAR VOLUME 92.3 fL (80.0-94.0); MEAN PLATELET VOLUME 7.1 fl (7.4-10.4); MONOCYTES % 8.2 % (2.0-8.0); NEUTROPHILS % 72.1 % (40.0-76.0); PLATELET 377 x1000/uL (130-400); RED BLOOD CELL COUNT 2.95 mill/uL (4.7-6.1); RED CELL DISTRIBUTION WIDTH 17.3 % (11.6-14.6)
[2018-02-26] MEDS: LOSARTAN POTASSIUM 50 MG TABLET PO SCH ×2 (09:11→21:27)
[2018-02-26] MEDS: PANTOPRAZOLE SODIUM 40 MG/VIAL IV SCH ×2 (09:11→21:27)
[2018-02-26] MEDS: DOCUSATE SODIUM SUGAR FREE 100MG/10ML UDC NG SCH ×2 (09:11→16:51)
[2018-02-26] MEDS: AMLODIPINE 5MG TABLET PO SCH ×2 (09:12→21:27)
[2018-02-26] MEDS: NEOMY SULF/BACITRAC ZN/POLY OINT 28GM TOP SCH ×2 (09:16→21:28)
[2018-02-26] MEDS: HYDROCODONE/ACETAMINOPHEN 5/325MG TABLET PO PRN (09:23)
[2018-02-26] MEDS ORDERED: CEFAZOLIN 1000MG PREMIX 50 ML IV NR (11:15)
[2018-02-26] MEDS ORDERED: CEFAZOLIN 1000MG PREMIX 50 ML IV ONE (12:49)
[2018-02-26] MEDS ORDERED: LIDOCAINE HCL 1% 20ML VIAL (Pyxis) INJ ONE (13:08)
[2018-02-26] MEDS ORDERED: SODIUM BICARBONATE 4% (2.4MEQ) 5ML VIAL IV ONE (13:08)
[2018-02-26] MEDS ORDERED: HEPARIN 1000 UNITS/ML 10ML ONE (13:09)
[2018-02-26] MEDS ORDERED: FENTANYL CITRATE/PF 50MCG/ML 2ML VIAL ONE (13:15)
[2018-02-26] MEDS ORDERED: FENTANYL CITRATE/PF 50MCG/ML 2ML VIAL IV ONE (13:45)
[2018-02-26] MEDS: HYDRALAZINE 20MG/ML VIAL IV PRN (16:51)
[2018-02-27] VITALS (24 sets, daily range): BP systolic 144–175; BP diastolic 40–115
[2018-02-27] MEDS: IPRATROPIUM/ALBUTEROL 0.5-3(2.5)MG/3ML NEB HHN SCH ×6 (00:59→20:45)
[2018-02-27 06:14] LABS: BASOPHILS % 2.7 % (0.0-2.0); EOSINOPHILS % 8.4 % (0.0-5.0); HEMATOCRIT. 26.8 % (42.0-52.0); HEMOGLOBIN. 9.2 g/dL (14.0-18.0); LYMPHOCYTES % 10.6 % (20.0-50.0); MEAN CORPUSCULAR HEMOGLOBIN 32.1 pg (28.0-32.0); MEAN CORPUSCULAR VOLUME 93.3 fL (80.0-94.0); MONOCYTES % 6.9 % (2.0-8.0); NEUTROPHILS % 71.4 % (40.0-76.0); PLATELET 355 x1000/uL (130-400); RED BLOOD CELL COUNT 2.88 mill/uL (4.7-6.1); RED CELL DISTRIBUTION WIDTH 18.3 % (11.6-14.6)
[2018-02-27] MEDS: PANTOPRAZOLE SODIUM 40 MG/VIAL IV SCH ×2 (09:36→21:58)
[2018-02-27] MEDS: DOCUSATE SODIUM SUGAR FREE 100MG/10ML UDC NG SCH ×2 (09:36→18:06)
[2018-02-27] MEDS: LOSARTAN POTASSIUM 50 MG TABLET PO SCH ×2 (09:36→21:57)
[2018-02-27] MEDS: AMLODIPINE 5MG TABLET PO SCH ×2 (09:37→21:58)
[2018-02-27] MEDS: NEOMY SULF/BACITRAC ZN/POLY OINT 28GM TOP SCH ×2 (09:39→21:00)
[2018-02-28] VITALS (17 sets, daily range): BP systolic 132–227; BP diastolic 41–127
[2018-02-28] MEDS: IPRATROPIUM/ALBUTEROL 0.5-3(2.5)MG/3ML NEB HHN SCH ×5 (04:18→20:06)
[2018-02-28] MEDS: HYDRALAZINE 20MG/ML VIAL IV PRN ×3 (06:37→17:58)
[2018-02-28] MEDS: AMLODIPINE 5MG TABLET PO SCH ×2 (07:08→18:20)
[2018-02-28] MEDS: NEOMY SULF/BACITRAC ZN/POLY OINT 28GM TOP SCH (09:00)
[2018-02-28] MEDS: DOCUSATE SODIUM SUGAR FREE 100MG/10ML UDC NG SCH ×2 (09:30→17:53)
[2018-02-28] MEDS: LOSARTAN POTASSIUM 50 MG TABLET PO SCH ×2 (09:30→18:17)
[2018-02-28] MEDS: PANTOPRAZOLE SODIUM 40 MG/VIAL IV SCH (09:30)
[2018-02-28] MEDS ORDERED: HEPARIN SODIUM 1,000 UNIT/1ML VIAL IV SCH (15:00)
[2018-02-28] MEDS ORDERED: PNEUMOCOCCAL 23-VAL P-SAC VAC 0.5 ML IM ONE (16:00)
== END 2018-03-01 00:07 | disposition home health service (06) | DRG 710 ==
LOC: ER 05:12 → EDBEDREQSVC 09:10 → EDBEDREQTM 09:10 → CVICU 09:26 → EDBEDREQTM 09:33 → EDBEDREQ 09:33 → CANRESERV 12:25 → ENRESERV 12:25 → EDBEDREQSVC 13:35 → EDBEDREQ 13:35 → ENRESERV 13:37 → EDBEDREQTM 13:38 → 5EST 02-23 17:48
PROVIDERS: ADMIT Internal Medicine; ATTEND Internal Medicine
PROC: 5A1955Z Respiratory Ventilation, Greater than 96 Consecutive Hours (ICD-10-PCS; principal; 2018-02-11)
PROC: 0BH17EZ Insertion of Endotracheal Airway into Trachea, Via Natural or Artificial Opening (ICD-10-PCS; 2018-02-11)
PROC: 5A09357 Assistance with Respiratory Ventilation, Less than 24 Consecutive Hours, Continuous Positive Airway Pressure (ICD-10-PCS; 2018-02-11)
PROC: 5A1D70Z Performance of Urinary Filtration, Intermittent, Less than 6 Hours Per Day (ICD-10-PCS; 2018-02-11)
PROC: 02HV33Z Insertion of Infusion Device into Superior Vena Cava, Percutaneous Approach (ICD-10-PCS; 2018-02-12)
PROC: B548ZZA Ultrasonography of Superior Vena Cava, Guidance (ICD-10-PCS; 2018-02-12)
PROC: 5A1D70Z Performance of Urinary Filtration, Intermittent, Less than 6 Hours Per Day (ICD-10-PCS; 2018-02-12)
PROC: 5A1D70Z Performance of Urinary Filtration, Intermittent, Less than 6 Hours Per Day (ICD-10-PCS; 2018-02-14)
PROC: 5A1D70Z Performance of Urinary Filtration, Intermittent, Less than 6 Hours Per Day (ICD-10-PCS; 2018-02-16)
PROC: 5A1D70Z Performance of Urinary Filtration, Intermittent, Less than 6 Hours Per Day (ICD-10-PCS; 2018-02-18)
PROC: 5A1D70Z Performance of Urinary Filtration, Intermittent, Less than 6 Hours Per Day (ICD-10-PCS; 2018-02-20)
PROC: 5A1D70Z Performance of Urinary Filtration, Intermittent, Less than 6 Hours Per Day (ICD-10-PCS; 2018-02-23)
PROC: 05CY0ZZ Extirpation of Matter from Upper Vein, Open Approach (ICD-10-PCS; 2018-02-25)
PROC: 057Y3ZZ Dilation of Upper Vein, Percutaneous Approach (ICD-10-PCS; 2018-02-25)
PROC: B2141ZZ Fluoroscopy of Right Heart using Low Osmolar Contrast (ICD-10-PCS; 2018-02-25)
PROC: B51W1ZZ Fluoroscopy of Dialysis Shunt/Fistula using Low Osmolar Contrast (ICD-10-PCS; 2018-02-25)
PROC: B51N1ZZ Fluoroscopy of Left Upper Extremity Veins using Low Osmolar Contrast (ICD-10-PCS; 2018-02-25)
PROC: B5181ZZ Fluoroscopy of Superior Vena Cava using Low Osmolar Contrast (ICD-10-PCS; 2018-02-25)
PROC: B31N1ZZ Fluoroscopy of Other Upper Arteries using Low Osmolar Contrast (ICD-10-PCS; 2018-02-25)
PROC: 05CY3ZZ Extirpation of Matter from Upper Vein, Percutaneous Approach (ICD-10-PCS; 2018-02-25)
PROC: 057Y3ZZ Dilation of Upper Vein, Percutaneous Approach (ICD-10-PCS; 2018-02-25)
PROC: 5A1D70Z Performance of Urinary Filtration, Intermittent, Less than 6 Hours Per Day (ICD-10-PCS; 2018-02-25)
PROC: 05JY3ZZ Inspection of Upper Vein, Percutaneous Approach (ICD-10-PCS; 2018-02-25)
PROC: 0JH63XZ Insertion of Tunneled Vascular Access Device into Chest Subcutaneous Tissue and Fascia, Percutaneous Approach (ICD-10-PCS; 2018-02-26)
PROC: 02H633Z Insertion of Infusion Device into Right Atrium, Percutaneous Approach (ICD-10-PCS; 2018-02-26)
PROC: B244ZZZ Ultrasonography of Right Heart (ICD-10-PCS; 2018-02-26)
PROC: 5A1D70Z Performance of Urinary Filtration, Intermittent, Less than 6 Hours Per Day (ICD-10-PCS; 2018-02-27)
PROC: 5A1D70Z Performance of Urinary Filtration, Intermittent, Less than 6 Hours Per Day (ICD-10-PCS; 2018-02-28)
DX: A41.59 Other Gram-negative sepsis (principal); I21.4 Non-ST elevation (NSTEMI) myocardial infarction; J96.01 Acute respiratory failure with hypoxia; R65.21 Severe sepsis with septic shock; I50.43 Acute on chronic combined systolic (congestive) and diastolic (congestive) heart failure; N18.6 End stage renal disease; J15.0 Pneumonia due to Klebsiella pneumoniae; I31.3 Pericardial effusion (noninflammatory); E44.1 Mild protein-calorie malnutrition; I13.2 Hypertensive heart and chronic kidney disease with heart failure and with stage 5 chronic kidney disease, or end stage renal disease; E87.5 Hyperkalemia; I27.22 Pulmonary hypertension due to left heart disease; K40.90 Unilateral inguinal hernia, without obstruction or gangrene, not specified as recurrent; S01.511A Laceration without foreign body of lip, initial encounter; X58.XXXA Exposure to other specified factors, initial encounter; Y33.XXXA Other specified events, undetermined intent, initial encounter; Y92.230 Patient room in hospital as the place of occurrence of the external cause; D63.1 Anemia in chronic kidney disease; E87.3 Alkalosis; Z60.2 Problems related to living alone; R00.1 Bradycardia, unspecified; R16.0 Hepatomegaly, not elsewhere classified; R17 Unspecified jaundice; E11.22 Type 2 diabetes mellitus with diabetic chronic kidney disease; Z99.2 Dependence on renal dialysis; Y93.89 Activity, other specified; Z79.899 Other long term (current) drug therapy; Z79.82 Long term (current) use of aspirin; Z78.1 Physical restraint status; Z86.11 Personal history of tuberculosis; Z68.20 Body mass index [BMI] 20.0-20.9, adult; T82.868A Thrombosis due to vascular prosthetic devices, implants and grafts, initial encounter
CPT/HCPCS: 31500; 36415; 36558; 36569; 36600; 36905; 71045; 71250; 74176; 76700; 76870; 76937; 77001; 80048; 80053; 80061; 80076; 80150; 80202; 80305; 81003; 82140; 82248; 82270; 82375; 82550; 82553; 82607; 82728; 82746; 82805; 82962; 83540; 83550; 83605; 83690; 83735; 83880; 84100; 84134; 84439; 84443; 84478; 84481; 84484; 85014; 85018; 85025; 85610; 85730; 87040; 87070; 87077; 87086; 87186; 87449; 87899; 90732; 92610; 93005; 93306; 93970; 93976; 94002; 94003; 94640; 94667; 96365; 96366; 96367; 96368; 96375; 97116; 97162; 97164; 97166; 97530; 99152; 99153; 99291; A4216; A6261; C1725; C1750; C1766; C1769; C1887; C2630; C9113; J0278; J0330; J0360; J0690; J0885; J1644; J1940; J1956; J2250; J2270; J2543; J2704; J3010; J3370; J3490; J7030; J7050; J7060; J7608; J7611; J7620; Q9963; Q9967